=== PATIENT | female | born 1985 | race Caucasian/White ===

== ENCOUNTER 2022-04-09 19:39 | Emergency (ER) | payer BC ==
[2022-04-09] MEDS ORDERED: LORazepam 2 MG/ML SDV IVPUSH ONE ×2 (19:42→22:14)
[2022-04-09 20:26] LABS: ESTIMATED GFR 116 mL/min (>60)
[2022-04-09] MEDS ORDERED: Calcium Gluconate 10% 1 GM/10 ML SDV IVPUSH ONE (21:20)
[2022-04-09] MEDS ORDERED: Potassium Chloride 20 MEQ Tab.ER PO ONE (21:20)
[2022-04-09] MEDS ORDERED: Ondansetron 4 MG/2 ML SDV IVPUSH ONE (22:12)
[2022-04-09] MEDS ORDERED: Ondansetron 4 MG/2 ML SDV ONE (22:13)
[2022-04-09] MEDS ORDERED: Sodium Chloride 0.9% 500 ML IV ONE (22:16)
== END 2022-04-09 23:00 | disposition home or self-care (01) ==
LOC: JP.ED 19:39
DX: G40.409 Other generalized epilepsy and epileptic syndromes, not intractable, without status epilepticus (principal); E87.6 Hypokalemia; E83.51 Hypocalcemia
CPT/HCPCS: 36415; 70450; 80053; 82550; 82947; 83605; 84443; 85025; 96374; 96375; 96376; 99284; 99285; A9270; J0610; J2060; J2405; J7040